=== PATIENT | male | born 1985 | race Caucasian/White ===

== ENCOUNTER 2021-04-08 14:48 | Inpatient (IN) | payer OTHER ==
[~2021-04-08] VITALS: Ht 180.3 cm; Wt 84.7 kg
--- NOTE | 2021-04-08 15:05 | NUR ---
PATIENT WALKED BACK FROM TRIAGE WITH CHIEF C/O RIGHT EYE SWELLING. PATIENT HAD EYE SURGERY 03/26/21 TO REMOVE BACTERIA THAT WAS IN SINUSES EATING AWAY BONE. RIGHT EYE STARTED SWELLING LAST NIGHT AND HAS GOTTEN WORSE. UPON ASSESSMENT RIGHT EYE IS SWOLLEN, CONNECTED TO MONITORS, VSS, AT BEDSIDE, CALL LIGHT WITHIN REACH.
--- NOTE | 2021-04-08 15:40 | NUR ---
COMMUNICATION [facility]ENTER COORDINATOR AT BEDSIDE.
[2021-04-08 16:04] LABS: BASOPHILS % (AUTO) 1 % (0-1); EOSINOPHILS % (AUTO) 4 % (1-7); LYMPHOCYTES % (AUTO) 23 % (22-44); MEAN CORPUSCULAR HEMOGLOBIN 31.3 pg (27.5-34.5); MEAN CORPUSCULAR HGB CONC 34.8 g/dL (33.2-36.2); MEAN PLATELET VOLUME 7.2 fL (7.4-10.4); MONOCYTES % (AUTO) 4 % (2-9); NEUTROPHILS % (AUTO) 68 % (42-75); PLATELET COUNT 250 x10^3/uL (130-400); RED BLOOD COUNT 5.11 x10^6/uL (4.38-5.82); RED CELL DISTRIBUTION WIDTH 13.2 % (9.4-14.8)
[2021-04-08 16:14] LABS: ALANINE AMINOTRANSFERASE 116 U/L (12-78); ALBUMIN 3.9 g/dL (3.4-5.0); ANION GAP 9 mmol/L (5-15); CALCIUM 8.9 mg/dL (8.5-10.1); CHLORIDE 106 mmol/L (98-107); CREATININE 0.98 mg/dL (0.7-1.3)
[2021-04-08 16:16] LABS: ALKALINE PHOSPHATASE 68 U/L (45-117); BILIRUBIN,TOTAL 0.5 mg/dL (0.2-1.0); TOTAL PROTEIN 7.3 g/dL (6.4-8.2)
--- NOTE | 2021-04-08 16:22 | NUR ---
PATIENT RESTING IN [facility] ON PHONE, AT BEDSIDE, CONNECTED TO MONITORS, VSS, NADN, CALL LIGHT WITHIN REACH, NO FURTHER NEEDS AT THIS TIME. WAITING FOR CT SCAN.
--- NOTE | 2021-04-08 16:30 | NUR ---
PATIENT TO CT SCAN.
[2021-04-08] MEDS ORDERED: OMNIPAQUE 350 MG/ML, 75ML BOTTLE ONE (16:41)
--- NOTE | 2021-04-08 17:39 | NUR ---
PATIENT BACK FROM CT SCAN, SITTING IN [facility] ON PHONE, AT BEDSIDE, CONNECTED TO MONITORS, VSS, CALL LIGHT WITHIN REACH. PATIENT UP FOR RECHECK.
--- NOTE | 2021-04-08 18:25 | NUR ---
ERMD AT BEDSIDE TO DISCUSS POC.
--- NOTE | 2021-04-08 18:45 | NUR ---
BEDSIDE REPORT FROM HAYDEN GALLARDO, PT CARE TRANSFERRED AT THIS TIME.
--- NOTE | 2021-04-08 19:28 | NUR ---
PT RESTING ON GURNEY, NAD, DENIES ADDITIONAL NEEDS, BED IN LOWEST, RAILS ENGAGED, CALL LIGHT ON LAP, MONITORING IN PLACE, VSS, WCTM.
[2021-04-08] MEDS ORDERED: ERTAPENEM IV (19:45)
[2021-04-08] MEDS ORDERED: DEXAMETHASONE 4 MG/ML, 1ML IVPush ONE (20:00)
[2021-04-08] MEDS ORDERED: ERTAPENEM 1 GM in SODIUM CHLORIDE 0.9% 50 ML IV ONE (20:00)
[2021-04-08] MEDS ORDERED: DEXAMETHASONE 4 MG/ML, 1ML ONE (20:11)
--- NOTE | 2021-04-08 20:20 | NUR ---
PT MEDICATED PER JAN. NAD, DENIES ADDITIONAL NEEDS, PT TO BE ADMITTED TO MED SURG. PT VSS, BED IN [facility], RAILS ENGAGED, SO AT BS, PROVIDER AT BS, MCKAYLA.
--- NOTE | 2021-04-08 20:48 | NUR ---
REPORT CALLED TO ARABELLA GALLARDO, PT NAD, DENIES ADDITIONAL QUESTIONS OR NEEDS AT THIS TIME. WCTM.
[2021-04-08] MEDS ORDERED: LORazepam 2 MG/ML, 1ML IVPush PRN (21:00)
[2021-04-08] MEDS ORDERED: TEMAZEPAM 15 MG CAPSULE PO PRN (21:00)
[2021-04-08] MEDS ORDERED: POTASSIUM CHLORIDE 20 MEQ TAB.ER.PRT PO ONE (21:00)
[2021-04-08] MEDS ORDERED: DEXAMETHASONE 4 MG/ML, 1ML IVPush SCH (21:00)
[2021-04-08] MEDS ORDERED: POLYETHYLENE GLYCOL 17 GM PACKET PO PRN (21:00)
[2021-04-08] MEDS ORDERED: BISACODYL 10 MG SUPP PR PRN (21:00)
[2021-04-08] MEDS ORDERED: ONDANSETRON 2MG/ML, 2ML IVPush PRN (21:00)
[2021-04-08] MEDS ORDERED: hydrALAzine 20 MG/ML, 1ML IVPush PRN (21:00)
[2021-04-08] MEDS ORDERED: DOCUSATE 100 MG CAPSULE PO PRN (21:00)
[2021-04-08 21:09] VITALS: BP 128/81
[2021-04-08] MEDS: FAMOTIDINE 20 MG TABLET PO SCH (21:40)
[2021-04-08] MEDS: MELATONIN 5 MG TABLET PO PRN (22:23)
[2021-04-08] MEDS: ACETAMINOPHEN 325 MG TABLET PO PRN (22:23)
[2021-04-09 01:31] VITALS: BP 114/68
[2021-04-09 05:34] LABS: BASOPHILS % (AUTO) 0 % (0-1); EOSINOPHILS % (AUTO) 0 % (1-7); LYMPHOCYTES % (AUTO) 10 % (22-44); MEAN CORPUSCULAR HEMOGLOBIN 30.9 pg (27.5-34.5); MEAN CORPUSCULAR HGB CONC 34.6 g/dL (33.2-36.2); MEAN PLATELET VOLUME 7.3 fL (7.4-10.4); MONOCYTES % (AUTO) 1 % (2-9); NEUTROPHILS % (AUTO) 89 % (42-75); PLATELET COUNT 258 x10^3/uL (130-400); RED BLOOD COUNT 5.22 x10^6/uL (4.38-5.82); RED CELL DISTRIBUTION WIDTH 13.1 % (9.4-14.8)
[2021-04-09 05:49] LABS: CALCIUM 9.7 mg/dL (8.5-10.1); CHLORIDE 107 mmol/L (98-107)
[2021-04-09 05:55] LABS: ALANINE AMINOTRANSFERASE 197 U/L (12-78); ALBUMIN 3.9 g/dL (3.4-5.0); ALKALINE PHOSPHATASE 70 U/L (45-117); ANION GAP 9 mmol/L (5-15); BILIRUBIN, DIRECT 0.1 mg/dL (0.1-0.2); BILIRUBIN,INDIRECT 0.4 mg/dL (0.0-2.0); BILIRUBIN,TOTAL 0.5 mg/dL (0.2-1.0); CREATININE 0.89 mg/dL (0.7-1.3); TOTAL PROTEIN 7.5 g/dL (6.4-8.2)
[2021-04-09 07:42] VITALS: BP 111/67
[2021-04-09] MEDS: DEXAMETHASONE 4 MG/ML, 1ML IVPush SCH ×3 (08:40→21:00)
[2021-04-09] MEDS: FAMOTIDINE 20 MG TABLET PO SCH ×2 (08:41→21:00)
[2021-04-09] MEDS: ENOXAPARIN 40 MG/0.4 ML SQ SCH (08:41)
[2021-04-09 14:46] VITALS: BP 118/64
[2021-04-09 19:22] VITALS: BP 119/70
[2021-04-09] MEDS: ERTAPENEM 1 GM in SODIUM CHLORIDE 0.9% 50 ML IV SCH (20:00)
[2021-04-09] MEDS: ACETAMINOPHEN 325 MG TABLET PO PRN (21:00)
[2021-04-09] MEDS: INSULIN LISPRO 100 UNITS/ML, PEN SQ-INSULIN SCH (21:00)
[2021-04-10 01:23] VITALS: BP 119/70
[2021-04-10] MEDS: PANTOPRAZOLE 40MG TABLET PO SCH (05:33)
[2021-04-10 06:17] LABS: MEAN CORPUSCULAR HEMOGLOBIN 30.9 pg (27.5-34.5); MEAN CORPUSCULAR HGB CONC 34.6 g/dL (33.2-36.2); MEAN PLATELET VOLUME 7.8 fL (7.4-10.4); PLATELET COUNT 278 x10^3/uL (130-400); RED BLOOD COUNT 4.95 x10^6/uL (4.38-5.82); RED CELL DISTRIBUTION WIDTH 13.1 % (9.4-14.8)
[2021-04-10 06:18] LABS: HCT (SEDRATE) 43.8 % (39.2-51.8)
[2021-04-10 06:23] LABS: CHLORIDE 104 mmol/L (98-107)
[2021-04-10 06:25] VITALS: BP 112/69
[2021-04-10 06:29] LABS: ANION GAP 10 mmol/L (5-15); C-REACTIVE PROTEIN, QUANT 0.36 mg/dL (0.02-0.49); CALCIUM 9.4 mg/dL (8.5-10.1); CREATININE 0.82 mg/dL (0.7-1.3)
[2021-04-10 06:46] LABS: <PLATELET ESTIMATE> ADEQUATE; <PLT MORPHOLOGY> NORMAL PLT MORPH; <RBC MORPHOLOGY> NORMAL; BANDS%(MANUAL) 3 % (0-7); LYMPHS% (MANUAL) 6 % (22-44); MONOS#(MANUAL) 0.33 x10^3/uL (0.3-2.7); MONOS% (MANUAL) 2 % (2-9); SEG#(MANUAL) 14.86 x10^3/uL (1.8-6.8); SEGS% (MANUAL) 89 % (42-75)
[2021-04-10] MEDS: INSULIN LISPRO 100 UNITS/ML, PEN SQ-INSULIN SCH ×4 (07:00→20:07)
[2021-04-10] MEDS: ENOXAPARIN 40 MG/0.4 ML SQ SCH (08:22)
[2021-04-10] MEDS: DEXAMETHASONE 4 MG/ML, 1ML IVPush SCH ×3 (08:29→20:49)
[2021-04-10] MEDS: FAMOTIDINE 20 MG TABLET PO SCH ×2 (08:29→20:48)
[2021-04-10] MEDS ORDERED: GADOTERATE 7.5 MMOL/15ML SYR ONE (09:19)
[2021-04-10 14:11] VITALS: BP 121/68
[2021-04-10] MEDS: ACETAMINOPHEN 325 MG TABLET PO PRN (16:45)
[2021-04-10] MEDS ORDERED: DAPTOMYCIN 480 MG in SODIUM CHLORIDE 0.9% 100 ML IVPB SCH (18:00)
[2021-04-10] MEDS: DAPTOMYCIN 500 MG in SODIUM CHLORIDE 0.9% 100 ML IVPB SCH (18:11)
[2021-04-10 18:30] VITALS: BP 116/72
[2021-04-10] MEDS: ERTAPENEM 1 GM in SODIUM CHLORIDE 0.9% 50 ML IV SCH (19:51)
[2021-04-11 00:19] VITALS: BP 116/69
[2021-04-11 04:23] LABS: MEAN CORPUSCULAR HEMOGLOBIN 30.5 pg (27.5-34.5); MEAN CORPUSCULAR HGB CONC 33.9 g/dL (33.2-36.2); MEAN PLATELET VOLUME 7.8 fL (7.4-10.4); PLATELET COUNT 253 x10^3/uL (130-400); RED BLOOD COUNT 4.68 x10^6/uL (4.38-5.82); RED CELL DISTRIBUTION WIDTH 13.1 % (9.4-14.8)
[2021-04-11 04:30] LABS: ALANINE AMINOTRANSFERASE 404 U/L (12-78); ALBUMIN 3.5 g/dL (3.4-5.0); ANION GAP 8 mmol/L (5-15); CALCIUM 8.9 mg/dL (8.5-10.1); CHLORIDE 105 mmol/L (98-107); CREATININE 0.76 mg/dL (0.7-1.3)
[2021-04-11 04:35] LABS: ALKALINE PHOSPHATASE 59 U/L (45-117); BILIRUBIN,TOTAL 0.4 mg/dL (0.2-1.0); CREATINE KINASE, TOTAL 19 U/L (39-308); TOTAL PROTEIN 6.9 g/dL (6.4-8.2)
[2021-04-11 04:46] LABS: BAND#(MANUAL) 0.19 x10^3/uL; BANDS%(MANUAL) 1 % (0-7); LYMPH#(MANUAL) 1.49 x10^3/uL (1-3.4); LYMPHS% (MANUAL) 8 % (22-44); MONOS#(MANUAL) 0.37 x10^3/uL (0.3-2.7); MONOS% (MANUAL) 2 % (2-9); SEG#(MANUAL) 16.55 x10^3/uL (1.8-6.8); SEGS% (MANUAL) 89 % (42-75)
[2021-04-11 04:47] LABS: <PLATELET ESTIMATE> ADEQUATE; <PLT MORPHOLOGY> NORMAL PLT MORPH; <RBC MORPHOLOGY> NORMAL
[2021-04-11] MEDS: PANTOPRAZOLE 40MG TABLET PO SCH (05:28)
[2021-04-11] MEDS: INSULIN LISPRO 100 UNITS/ML, PEN SQ-INSULIN SCH ×4 (07:00→21:00)
[2021-04-11 07:01] VITALS: BP 112/65
[2021-04-11] MEDS: ENOXAPARIN 40 MG/0.4 ML SQ SCH (09:00)
[2021-04-11] MEDS: DEXAMETHASONE 4 MG/ML, 1ML IVPush SCH ×3 (09:39→21:14)
[2021-04-11] MEDS: FAMOTIDINE 20 MG TABLET PO SCH ×2 (09:40→21:14)
[2021-04-11 12:45] VITALS: BP 113/67
[2021-04-11] MEDS: DAPTOMYCIN 500 MG in SODIUM CHLORIDE 0.9% 100 ML IVPB SCH (17:17)
[2021-04-11] MEDS: ACETAMINOPHEN 325 MG TABLET PO PRN (17:25)
[2021-04-11 18:33] VITALS: BP 107/67
[2021-04-11] MEDS: ERTAPENEM 1 GM in SODIUM CHLORIDE 0.9% 50 ML IV SCH (19:59)
[2021-04-12 00:15] VITALS: BP 123/71
[2021-04-12] MEDS: PANTOPRAZOLE 40MG TABLET PO SCH (05:29)
[2021-04-12] MEDS: INSULIN LISPRO 100 UNITS/ML, PEN SQ-INSULIN SCH ×4 (07:00→19:28)
[2021-04-12 07:14] VITALS: BP 112/63
[2021-04-12] MEDS: DEXAMETHASONE 4 MG/ML, 1ML IVPush SCH ×3 (08:34→21:22)
[2021-04-12] MEDS: ENOXAPARIN 40 MG/0.4 ML SQ SCH (08:35)
[2021-04-12] MEDS: FAMOTIDINE 20 MG TABLET PO SCH ×2 (08:35→21:22)
[2021-04-12 09:07] LABS: ALANINE AMINOTRANSFERASE 362 U/L (12-78); ALBUMIN 3.5 g/dL (3.4-5.0); ANION GAP 6 mmol/L (5-15); CALCIUM 8.9 mg/dL (8.5-10.1); CHLORIDE 106 mmol/L (98-107); CREATININE 0.76 mg/dL (0.7-1.3)
[2021-04-12 09:09] LABS: ALKALINE PHOSPHATASE 60 U/L (45-117); BILIRUBIN,TOTAL 0.5 mg/dL (0.2-1.0); TOTAL PROTEIN 6.9 g/dL (6.4-8.2)
[2021-04-12 13:25] VITALS: BP 120/64
[2021-04-12 16:15] LABS: ANA SCREEN NEGATIVE (Negative)
[2021-04-12] MEDS: DAPTOMYCIN 500 MG in SODIUM CHLORIDE 0.9% 100 ML IVPB SCH (17:00)
[2021-04-12 19:09] VITALS: BP 108/71
[2021-04-12] MEDS: ERTAPENEM 1 GM in SODIUM CHLORIDE 0.9% 50 ML IV SCH (19:54)
[2021-04-13 00:41] VITALS: BP 117/58
[2021-04-13] MEDS: PANTOPRAZOLE 40MG TABLET PO SCH (05:06)
[2021-04-13] MEDS: INSULIN LISPRO 100 UNITS/ML, PEN SQ-INSULIN SCH ×4 (07:00→20:16)
[2021-04-13] MEDS: ACETAMINOPHEN 325 MG TABLET PO PRN ×3 (07:24→20:25)
[2021-04-13 08:52] VITALS: BP 116/75
[2021-04-13] MEDS: DEXAMETHASONE 4 MG/ML, 1ML IVPush SCH ×2 (08:58→16:25)
[2021-04-13] MEDS: FAMOTIDINE 20 MG TABLET PO SCH ×2 (08:58→20:12)
[2021-04-13] MEDS: ENOXAPARIN 40 MG/0.4 ML SQ SCH (08:58)
[2021-04-13 10:19] LABS: ALANINE AMINOTRANSFERASE 327 U/L (12-78); ALBUMIN 3.6 g/dL (3.4-5.0); ANION GAP 11 mmol/L (5-15); CALCIUM 9.5 mg/dL (8.5-10.1); CHLORIDE 103 mmol/L (98-107); CREATININE 0.93 mg/dL (0.7-1.3)
[2021-04-13 10:20] LABS: INTERNATIONAL NORMALIZED RATIO 1.12 (0.93-1.1)
[2021-04-13 10:21] LABS: ALKALINE PHOSPHATASE 64 U/L (45-117); BILIRUBIN,TOTAL 0.6 mg/dL (0.2-1.0)
[2021-04-13 15:00] VITALS: BP 118/68
[2021-04-13] MEDS: DAPTOMYCIN 500 MG in SODIUM CHLORIDE 0.9% 100 ML IVPB SCH (17:46)
[2021-04-13 19:44] VITALS: BP 110/67
[2021-04-13] MEDS: ERTAPENEM 1 GM in SODIUM CHLORIDE 0.9% 50 ML IV SCH (20:12)
[2021-04-14] MEDS: DEXAMETHASONE 4 MG/ML, 1ML IVPush SCH ×4 (00:16→21:17)
[2021-04-14 00:20] VITALS: BP 113/73
[2021-04-14 04:21] LABS: BASOPHILS % (AUTO) 0 % (0-1); EOSINOPHILS % (AUTO) 0 % (1-7); LYMPHOCYTES % (AUTO) 7 % (22-44); MEAN CORPUSCULAR HEMOGLOBIN 30.5 pg (27.5-34.5); MEAN CORPUSCULAR HGB CONC 34.3 g/dL (33.2-36.2); MEAN PLATELET VOLUME 7.8 fL (7.4-10.4); MONOCYTES % (AUTO) 3 % (2-9); NEUTROPHILS % (AUTO) 90 % (42-75); PLATELET COUNT 253 x10^3/uL (130-400); RED CELL DISTRIBUTION WIDTH 13.3 % (9.4-14.8)
[2021-04-14 04:31] LABS: ANION GAP 7 mmol/L (5-15); CALCIUM 8.8 mg/dL (8.5-10.1); CHLORIDE 102 mmol/L (98-107); CREATININE 0.92 mg/dL (0.7-1.3)
[2021-04-14] MEDS: PANTOPRAZOLE 40MG TABLET PO SCH (05:28)
[2021-04-14] MEDS: INSULIN LISPRO 100 UNITS/ML, PEN SQ-INSULIN SCH ×4 (07:00→21:00)
[2021-04-14 07:15] VITALS: BP 112/68
[2021-04-14] MEDS: ENOXAPARIN 40 MG/0.4 ML SQ SCH (08:33)
[2021-04-14] MEDS: FAMOTIDINE 20 MG TABLET PO SCH ×2 (08:33→21:16)
[2021-04-14] MEDS: ACETAMINOPHEN 325 MG TABLET PO PRN ×2 (08:43→16:11)
[2021-04-14 09:54] LABS: ALANINE AMINOTRANSFERASE 304 U/L (12-78)
[2021-04-14 09:57] LABS: ALKALINE PHOSPHATASE 57 U/L (45-117)
[2021-04-14 12:21] VITALS: BP 114/66
[2021-04-14] MEDS ORDERED: EPINEPHRINE TOPICAL SOLN 1 MG/ML, 30ML ONE (13:14)
[2021-04-14] MEDS ORDERED: LIDOCAINE/PF 1%-EPI 1:200K, 30 ML ONE (13:14)
[2021-04-14] MEDS ORDERED: FLUORESCEIN SODIUM 500 MG/5 ML ONE (13:15)
[2021-04-14] MEDS ORDERED: NEOSPORIN OINT, 15GM ONE (13:15)
[2021-04-14] MEDS ORDERED: OXYMETAZOLINE NASAL SPRAY 0.05%,30ML ONE (13:15)
[2021-04-14 13:58] LABS: PLATELET (PFA) 255 x10^3/uL (130-400)
[2021-04-14] MEDS ORDERED: PROPOFOL 0 ML ONE (14:01)
[2021-04-14] MEDS ORDERED: FENTANYL PF 250 MCG/5ML ONE (14:02)
[2021-04-14] MEDS ORDERED: MIDAZOLAM 1 MG/ML, 2ML ONE (14:02)
[2021-04-14 14:46] LABS: INTERNATIONAL NORMALIZED RATIO 1.11 (0.93-1.1); PARTIAL THROMBOPLASTIN TIME 28 Seconds (25-31); PROTHROMBIN TIME 11.9 Seconds (9.6-11.5)
[2021-04-14] MEDS: DAPTOMYCIN 500 MG in SODIUM CHLORIDE 0.9% 100 ML IVPB SCH (17:17)
[2021-04-14] MEDS: ERTAPENEM 1 GM in SODIUM CHLORIDE 0.9% 50 ML IV SCH (19:46)
[2021-04-14] MEDS: OXYcodone IR 5MG TABLET PO PRN (21:16)
[2021-04-14] MEDS: MELATONIN 5 MG TABLET PO PRN (21:17)
[2021-04-14 21:31] VITALS: BP 110/63
[2021-04-15 03:28] VITALS: BP 95/61
[2021-04-15] MEDS: PANTOPRAZOLE 40MG TABLET PO SCH (05:58)
[2021-04-15] MEDS: OXYcodone IR 5MG TABLET PO PRN (06:00)
[2021-04-15] MEDS: INSULIN LISPRO 100 UNITS/ML, PEN SQ-INSULIN SCH ×4 (07:00→20:09)
[2021-04-15 08:07] VITALS: BP 117/68
[2021-04-15] MEDS: ENOXAPARIN 40 MG/0.4 ML SQ SCH (09:00)
[2021-04-15] MEDS: FAMOTIDINE 20 MG TABLET PO SCH ×2 (09:02→20:08)
[2021-04-15] MEDS: DEXAMETHASONE 4 MG/ML, 1ML IVPush SCH ×3 (09:04→20:08)
[2021-04-15 11:50] LABS: ALANINE AMINOTRANSFERASE 253 U/L (12-78)
[2021-04-15 14:34] VITALS: BP 116/63
[2021-04-15] MEDS: DAPTOMYCIN 500 MG in SODIUM CHLORIDE 0.9% 100 ML IVPB SCH (17:39)
[2021-04-15] MEDS: ACETAMINOPHEN 325 MG TABLET PO PRN (20:08)
[2021-04-15] MEDS: ERTAPENEM 1 GM in SODIUM CHLORIDE 0.9% 50 ML IV SCH (20:08)
[2021-04-15] MEDS: MELATONIN 5 MG TABLET PO PRN (20:09)
[2021-04-15 20:16] VITALS: BP 112/74
[2021-04-16 00:12] VITALS: BP 126/76
[2021-04-16] MEDS: PANTOPRAZOLE 40MG TABLET PO SCH (05:43)
[2021-04-16] MEDS: INSULIN LISPRO 100 UNITS/ML, PEN SQ-INSULIN SCH ×4 (07:00→19:33)
[2021-04-16 08:00] VITALS: BP 117/70
[2021-04-16] MEDS: ENOXAPARIN 40 MG/0.4 ML SQ SCH ×2 (09:00→09:41)
[2021-04-16] MEDS: FAMOTIDINE 20 MG TABLET PO SCH ×2 (09:41→19:30)
[2021-04-16] MEDS: DEXAMETHASONE 4 MG/ML, 1ML IVPush SCH ×3 (09:41→19:30)
[2021-04-16] MEDS: ACETAMINOPHEN 325 MG TABLET PO PRN ×3 (09:51→21:30)
[2021-04-16 14:13] VITALS: BP 120/73
[2021-04-16] MEDS: DAPTOMYCIN 500 MG in SODIUM CHLORIDE 0.9% 100 ML IVPB SCH (17:47)
[2021-04-16] MEDS: ERTAPENEM 1 GM in SODIUM CHLORIDE 0.9% 50 ML IV SCH (19:29)
[2021-04-16 20:07] VITALS: BP 117/53
[2021-04-17 01:18] VITALS: BP 121/71
[2021-04-17] MEDS: ACETAMINOPHEN 325 MG TABLET PO PRN ×3 (05:22→21:22)
[2021-04-17] MEDS: PANTOPRAZOLE 40MG TABLET PO SCH (05:22)
[2021-04-17] MEDS: INSULIN LISPRO 100 UNITS/ML, PEN SQ-INSULIN SCH ×4 (06:51→21:10)
[2021-04-17 07:42] VITALS: BP 120/77
[2021-04-17] MEDS: DEXAMETHASONE 4 MG/ML, 1ML IVPush SCH ×3 (08:29→21:09)
[2021-04-17] MEDS: FAMOTIDINE 20 MG TABLET PO SCH ×2 (08:29→21:09)
[2021-04-17] MEDS: ENOXAPARIN 40 MG/0.4 ML SQ SCH (08:46)
[2021-04-17 14:55] VITALS: BP 132/74
[2021-04-17] MEDS: DAPTOMYCIN 500 MG in SODIUM CHLORIDE 0.9% 100 ML IVPB SCH (17:24)
[2021-04-17 19:11] VITALS: BP 114/64
[2021-04-17] MEDS: ERTAPENEM 1 GM in SODIUM CHLORIDE 0.9% 50 ML IV SCH (19:49)
[2021-04-18 03:10] VITALS: BP 114/63
[2021-04-18] MEDS: PANTOPRAZOLE 40MG TABLET PO SCH (05:10)
[2021-04-18] MEDS: ACETAMINOPHEN 325 MG TABLET PO PRN ×3 (05:10→21:07)
[2021-04-18 05:18] LABS: MEAN CORPUSCULAR HEMOGLOBIN 30.7 pg (27.5-34.5); MEAN CORPUSCULAR HGB CONC 34.2 g/dL (33.2-36.2); MEAN PLATELET VOLUME 8.2 fL (7.4-10.4); PLATELET COUNT 216 x10^3/uL (130-400); RED CELL DISTRIBUTION WIDTH 13.1 % (9.4-14.8)
[2021-04-18 05:19] LABS: HCT (SEDRATE) 44.1 % (39.2-51.8)
[2021-04-18 05:30] LABS: ALANINE AMINOTRANSFERASE 336 U/L (12-78); ALBUMIN 2.9 g/dL (3.4-5.0); ANION GAP 8 mmol/L (5-15); C-REACTIVE PROTEIN, QUANT 0.13 mg/dL (0.02-0.49); CALCIUM 8.7 mg/dL (8.5-10.1); CHLORIDE 102 mmol/L (98-107); CREATININE 0.85 mg/dL (0.7-1.3)
[2021-04-18 05:32] LABS: ALKALINE PHOSPHATASE 52 U/L (45-117); BILIRUBIN,TOTAL 0.5 mg/dL (0.2-1.0); CREATINE KINASE, TOTAL 16 U/L (39-308)
[2021-04-18 06:15] LABS: <PLATELET ESTIMATE> ADEQUATE; <PLT MORPHOLOGY> NORMAL PLT MORPH; <RBC MORPHOLOGY> NORMAL; LYMPH#(MANUAL) 1.46 x10^3/uL (1-3.4); LYMPHS% (MANUAL) 9 % (22-44); METAMYELOCYTES# (MANUAL) 0.32 x10^3/uL (0-0); METAMYELOCYTES% (MANUAL) 2 % (0-1); MONOS% (MANUAL) 8 % (2-9); MYELOCYTES# (MANUAL) 0.16 x10^3/uL (0-0); MYELOCYTES% (MANUAL) 1 % (0-0); SEG#(MANUAL) 12.96 x10^3/uL (1.8-6.8); SEGS% (MANUAL) 80 % (42-75)
[2021-04-18] MEDS: INSULIN LISPRO 100 UNITS/ML, PEN SQ-INSULIN SCH ×4 (07:00→21:00)
[2021-04-18 07:22] VITALS: BP 118/67
[2021-04-18] MEDS: ENOXAPARIN 40 MG/0.4 ML SQ SCH (09:00)
[2021-04-18] MEDS: DEXAMETHASONE 4 MG/ML, 1ML IVPush SCH ×3 (09:04→21:07)
[2021-04-18] MEDS: FAMOTIDINE 20 MG TABLET PO SCH ×2 (09:04→21:07)
[2021-04-18 14:02] VITALS: BP 120/54
[2021-04-18] MEDS: DAPTOMYCIN 500 MG in SODIUM CHLORIDE 0.9% 100 ML IVPB SCH (17:14)
[2021-04-18 19:25] VITALS: BP 127/54
[2021-04-18] MEDS: ERTAPENEM 1 GM in SODIUM CHLORIDE 0.9% 50 ML IV SCH (20:03)
[2021-04-19 01:05] VITALS: BP 101/59
[2021-04-19] MEDS: PANTOPRAZOLE 40MG TABLET PO SCH (06:08)
[2021-04-19] MEDS: INSULIN LISPRO 100 UNITS/ML, PEN SQ-INSULIN SCH ×4 (07:00→20:58)
[2021-04-19] MEDS: FAMOTIDINE 20 MG TABLET PO SCH ×2 (08:04→20:58)
[2021-04-19] MEDS: ACETAMINOPHEN 325 MG TABLET PO PRN ×3 (08:04→19:55)
[2021-04-19] MEDS: ENOXAPARIN 40 MG/0.4 ML SQ SCH (08:05)
[2021-04-19] MEDS: DEXAMETHASONE 4 MG/ML, 1ML IVPush SCH ×3 (08:05→20:57)
[2021-04-19 08:50] VITALS: BP 122/77
[2021-04-19] MEDS ORDERED: METOPROLOL SUCCINATE 50 MG TAB.ER.24H PO SCH (14:30)
[2021-04-19 14:44] VITALS: BP 116/64
[2021-04-19] MEDS: OXYcodone IR 5MG TABLET PO PRN (16:25)
[2021-04-19] MEDS: DAPTOMYCIN 500 MG in SODIUM CHLORIDE 0.9% 100 ML IVPB SCH (17:58)
[2021-04-19 19:47] VITALS: BP 96/65
[2021-04-19] MEDS: ERTAPENEM 1 GM in SODIUM CHLORIDE 0.9% 50 ML IV SCH (19:55)
[2021-04-20] MEDS: ACETAMINOPHEN 325 MG TABLET PO PRN ×2 (00:52→05:23)
[2021-04-20 00:55] VITALS: BP 122/73
[2021-04-20] MEDS: PANTOPRAZOLE 40MG TABLET PO SCH (05:21)
[2021-04-20 07:26] VITALS: BP 108/65
[2021-04-20] MEDS: INSULIN LISPRO 100 UNITS/ML, PEN SQ-INSULIN SCH ×4 (07:40→19:43)
[2021-04-20] MEDS: OXYcodone IR 5MG TABLET PO PRN (08:40)
[2021-04-20] MEDS: ENOXAPARIN 40 MG/0.4 ML SQ SCH (08:40)
[2021-04-20] MEDS: DEXAMETHASONE 4 MG/ML, 1ML IVPush SCH ×3 (08:40→21:18)
[2021-04-20] MEDS: FAMOTIDINE 20 MG TABLET PO SCH ×2 (08:40→21:18)
[2021-04-20] MEDS: HYDROcodone/APAP 5/325 TABLET PO PRN ×3 (12:01→23:45)
[2021-04-20 13:09] VITALS: BP 120/69
[2021-04-20] MEDS: FENTANYL 50 MCG PATCH TD SCH (13:47)
[2021-04-20] MEDS: DAPTOMYCIN 500 MG in SODIUM CHLORIDE 0.9% 100 ML IVPB SCH (17:53)
[2021-04-20] MEDS: ERTAPENEM 1 GM in SODIUM CHLORIDE 0.9% 50 ML IV SCH (19:35)
[2021-04-20 19:38] VITALS: BP 123/69
[2021-04-21 00:41] VITALS: BP 116/72
[2021-04-21] MEDS: PANTOPRAZOLE 40MG TABLET PO SCH (05:33)
[2021-04-21] MEDS: HYDROcodone/APAP 5/325 TABLET PO PRN ×3 (06:12→18:47)
[2021-04-21] MEDS: INSULIN LISPRO 100 UNITS/ML, PEN SQ-INSULIN SCH ×4 (07:50→19:32)
[2021-04-21 08:06] VITALS: BP 112/65
[2021-04-21] MEDS: ENOXAPARIN 40 MG/0.4 ML SQ SCH (08:40)
[2021-04-21] MEDS: FAMOTIDINE 20 MG TABLET PO SCH ×2 (08:44→21:12)
[2021-04-21] MEDS: DEXAMETHASONE 4 MG/ML, 1ML IVPush SCH ×3 (08:46→21:12)
[2021-04-21 13:08] VITALS: BP 128/71
[2021-04-21] MEDS: DAPTOMYCIN 500 MG in SODIUM CHLORIDE 0.9% 100 ML IVPB SCH (17:43)
[2021-04-21 19:36] VITALS: BP 109/60
[2021-04-21] MEDS: ERTAPENEM 1 GM in SODIUM CHLORIDE 0.9% 50 ML IV SCH (19:38)
[2021-04-22 00:36] VITALS: BP 101/59
[2021-04-22] MEDS: HYDROcodone/APAP 5/325 TABLET PO PRN ×5 (00:42→20:47)
[2021-04-22] MEDS: PANTOPRAZOLE 40MG TABLET PO SCH (05:09)
[2021-04-22 06:02] LABS: CREATININE 0.85 mg/dL (0.7-1.3)
[2021-04-22] MEDS: INSULIN LISPRO 100 UNITS/ML, PEN SQ-INSULIN SCH ×4 (07:02→20:48)
[2021-04-22 07:05] VITALS: BP 115/64
[2021-04-22] MEDS: DEXAMETHASONE 4 MG/ML, 1ML IVPush SCH ×3 (08:06→20:39)
[2021-04-22] MEDS: FAMOTIDINE 20 MG TABLET PO SCH ×2 (08:06→20:39)
[2021-04-22] MEDS: ENOXAPARIN 40 MG/0.4 ML SQ SCH (08:32)
[2021-04-22 14:06] VITALS: BP 129/78
[2021-04-22] MEDS: DAPTOMYCIN 500 MG in SODIUM CHLORIDE 0.9% 100 ML IVPB SCH (18:07)
[2021-04-22] MEDS: ERTAPENEM 1 GM in SODIUM CHLORIDE 0.9% 50 ML IV SCH (20:39)
[2021-04-22 20:56] VITALS: BP 130/72
[2021-04-23] MEDS: HYDROcodone/APAP 5/325 TABLET PO PRN ×2 (01:02→05:59)
[2021-04-23 02:29] VITALS: BP 127/78
[2021-04-23] MEDS: PANTOPRAZOLE 40MG TABLET PO SCH (05:59)
[2021-04-23] MEDS: INSULIN LISPRO 100 UNITS/ML, PEN SQ-INSULIN SCH ×4 (07:00→19:57)
[2021-04-23] MEDS: ENOXAPARIN 40 MG/0.4 ML SQ SCH (07:29)
[2021-04-23] MEDS: FAMOTIDINE 20 MG TABLET PO SCH ×2 (07:29→19:57)
[2021-04-23] MEDS: DEXAMETHASONE 4 MG/ML, 1ML IVPush SCH ×3 (07:29→19:57)
[2021-04-23 07:46] VITALS: BP 136/81
[2021-04-23] MEDS: FENTANYL 50 MCG PATCH TD SCH (09:14)
[2021-04-23 14:12] VITALS: BP 118/68
[2021-04-23] MEDS: DAPTOMYCIN 500 MG in SODIUM CHLORIDE 0.9% 100 ML IVPB SCH (17:32)
[2021-04-23 19:31] VITALS: BP 146/69
[2021-04-23] MEDS: ERTAPENEM 1 GM in SODIUM CHLORIDE 0.9% 50 ML IV SCH (19:56)
[2021-04-24 00:35] VITALS: BP 117/68
[2021-04-24] MEDS: PANTOPRAZOLE 40MG TABLET PO SCH (05:37)
[2021-04-24] MEDS: INSULIN LISPRO 100 UNITS/ML, PEN SQ-INSULIN SCH ×4 (07:00→21:00)
[2021-04-24 07:47] VITALS: BP 114/62
[2021-04-24] MEDS: ENOXAPARIN 40 MG/0.4 ML SQ SCH (09:00)
[2021-04-24] MEDS: FAMOTIDINE 20 MG TABLET PO SCH ×2 (09:20→21:11)
[2021-04-24] MEDS: DEXAMETHASONE 4 MG/ML, 1ML IVPush SCH ×3 (09:20→21:12)
[2021-04-24 13:44] VITALS: BP 122/68
[2021-04-24] MEDS: DAPTOMYCIN 500 MG in SODIUM CHLORIDE 0.9% 100 ML IVPB SCH (17:34)
[2021-04-24] MEDS: ERTAPENEM 1 GM in SODIUM CHLORIDE 0.9% 50 ML IV SCH (20:12)
[2021-04-24 20:26] VITALS: BP 121/68
[2021-04-25 01:22] VITALS: BP 129/67
[2021-04-25 05:44] LABS: HCT (SEDRATE) 44.2 % (39.2-51.8)
[2021-04-25] MEDS: PANTOPRAZOLE 40MG TABLET PO SCH (05:44)
[2021-04-25 05:49] LABS: ALBUMIN 2.7 g/dL (3.4-5.0); ANION GAP 7 mmol/L (5-15); CALCIUM 8.1 mg/dL (8.5-10.1); CHLORIDE 96 mmol/L (98-107)
[2021-04-25 05:53] LABS: BASOPHILS % (AUTO) 0 % (0-1); EOSINOPHILS % (AUTO) 0 % (1-7); LYMPHOCYTES % (AUTO) 5 % (22-44); MEAN CORPUSCULAR HEMOGLOBIN 31.3 pg (27.5-34.5); MEAN CORPUSCULAR HGB CONC 34.2 g/dL (33.2-36.2); MEAN PLATELET VOLUME 8.2 fL (7.4-10.4); MONOCYTES % (AUTO) 4 % (2-9); NEUTROPHILS % (AUTO) 91 % (42-75); PLATELET COUNT 152 x10^3/uL (130-400); RED BLOOD COUNT 4.78 x10^6/uL (4.38-5.82); RED CELL DISTRIBUTION WIDTH 13.6 % (9.4-14.8)
[2021-04-25 05:57] LABS: ALANINE AMINOTRANSFERASE 1097 U/L (12-78); ALKALINE PHOSPHATASE 60 U/L (45-117); BILIRUBIN,TOTAL 0.7 mg/dL (0.2-1.0); C-REACTIVE PROTEIN, QUANT 0.09 mg/dL (0.02-0.49); CREATINE KINASE, TOTAL 26 U/L (39-308); CREATININE 0.74 mg/dL (0.7-1.3); TOTAL PROTEIN 5.7 g/dL (6.4-8.2)
[2021-04-25 06:58] VITALS: BP 120/69
[2021-04-25] MEDS: INSULIN LISPRO 100 UNITS/ML, PEN SQ-INSULIN SCH ×4 (07:00→20:50)
[2021-04-25] MEDS: ENOXAPARIN 40 MG/0.4 ML SQ SCH (09:00)
[2021-04-25] MEDS: DEXAMETHASONE 4 MG/ML, 1ML IVPush SCH ×3 (09:08→20:48)
[2021-04-25] MEDS: FAMOTIDINE 20 MG TABLET PO SCH ×2 (09:08→20:48)
[2021-04-25 12:58] VITALS: BP 121/74
[2021-04-25] MEDS: DAPTOMYCIN 500 MG in SODIUM CHLORIDE 0.9% 100 ML IVPB SCH (17:05)
[2021-04-25 18:30] VITALS: BP 129/70
[2021-04-25] MEDS: ERTAPENEM 1 GM in SODIUM CHLORIDE 0.9% 50 ML IV SCH (19:58)
[2021-04-25 20:19] LABS: INTERNATIONAL NORMALIZED RATIO 1.05 (0.93-1.1); PROTHROMBIN TIME 11.2 Seconds (9.6-11.5)
[2021-04-26 00:10] VITALS: BP 109/61
[2021-04-26] MEDS: PANTOPRAZOLE 40MG TABLET PO SCH (05:49)
[2021-04-26 06:58] VITALS: BP 115/68
[2021-04-26] MEDS: ENOXAPARIN 40 MG/0.4 ML SQ SCH (07:00)
[2021-04-26] MEDS: INSULIN LISPRO 100 UNITS/ML, PEN SQ-INSULIN SCH ×4 (07:00→21:00)
[2021-04-26] MEDS: FAMOTIDINE 20 MG TABLET PO SCH ×2 (08:15→21:07)
[2021-04-26] MEDS: FENTANYL 50 MCG PATCH TD SCH (08:16)
[2021-04-26] MEDS: DEXAMETHASONE 4 MG/ML, 1ML IVPush SCH ×3 (08:19→21:07)
[2021-04-26] MEDS ORDERED: EPINEPHRINE 1 MG/ML, 1ML ONE (08:24)
[2021-04-26] MEDS ORDERED: OXYMETAZOLINE NASAL SPRAY 0.05%,30ML ONE (08:24)
[2021-04-26] MEDS ORDERED: EPINEPHRINE TOPICAL SOLN 1 MG/ML, 30ML ONE (08:24)
[2021-04-26] MEDS ORDERED: FLUORESCEIN SODIUM 500 MG/5 ML ONE (08:24)
[2021-04-26] MEDS ORDERED: BACITRACIN OINT 500U/GM, 15 GM ONE (08:24)
[2021-04-26] MEDS ORDERED: LIDOCAINE/PF 1%, 30ML ONE (08:24)
[2021-04-26] MEDS ORDERED: MIDAZOLAM 1 MG/ML, 2ML ONE (08:32)
[2021-04-26] MEDS ORDERED: FENTANYL PF 250 MCG/5ML ONE ×3 (08:33→10:51)
[2021-04-26] MEDS ORDERED: ROCURONIUM 10MG/ML,5ML ONE (08:49)
[2021-04-26] MEDS ORDERED: PROPOFOL 10 MG/ML, 20ML ONE (08:49)
[2021-04-26] MEDS ORDERED: DESMOPRESSIN 24 MCG in SODIUM CHLORIDE 0.9% 50 ML IVPB ONE (09:00)
[2021-04-26] MEDS ORDERED: LACTATED RINGERS 1,000 ML IV SCH (09:00)
[2021-04-26] MEDS ORDERED: CHLORHEXIDINE 15 ML UDC PO ONE (09:00)
[2021-04-26] MEDS ORDERED: GLYCOPYRROLATE 0.2MG/1ML, 5ML ONE (09:07)
[2021-04-26] MEDS ORDERED: DEXAMETHASONE 4 MG/ML, 1ML ONE (09:07)
[2021-04-26] MEDS ORDERED: ONDANSETRON 2MG/ML, 2ML ONE (09:07)
[2021-04-26] MEDS ORDERED: NEOSTIGMINE 1 MG/ML, 10ML ONE (09:07)
[2021-04-26] MEDS ORDERED: FENTANYL PF 100 MCG/2ML ONE ×2 (10:06→13:57)
[2021-04-26] MEDS ORDERED: EPHEDRINE 50 MG/ML, 1ML IVPush PRN (13:00)
[2021-04-26] MEDS ORDERED: ALBUTEROL SULFATE 2.5 MG/3 ML NPPB PRN (13:00)
[2021-04-26] MEDS ORDERED: PROMETHAZINE 12.5 MG SUPP PR PRN (13:00)
[2021-04-26] MEDS ORDERED: PROMETHAZINE 25 MG/ML, 1ML IVPush PRN (13:00)
[2021-04-26] MEDS ORDERED: FENTANYL PF 100 MCG/2ML IV PRN (13:00)
[2021-04-26] MEDS ORDERED: DIPHENHYDRAMINE 50 MG/ML, 1ML IVPush PRN ×2 (13:00)
[2021-04-26] MEDS ORDERED: MIDAZOLAM 1 MG/ML, 2ML IV PRN (13:00)
[2021-04-26] MEDS ORDERED: OXYcodone 5 MG/5 ML ORAL.SOL UDC PO PRN (13:00)
[2021-04-26] MEDS ORDERED: hydrALAzine 20 MG/ML, 1ML IV PRN (13:00)
[2021-04-26] MEDS ORDERED: ONDANSETRON 2MG/ML, 2ML IVPush PRN (13:00)
[2021-04-26] MEDS ORDERED: HYDROmorphone 1 MG/ML, 1ML INJ IVPush PRN (13:00)
[2021-04-26] MEDS ORDERED: MEPERIDINE/PF 25MG/0.5ML IVPush PRN (13:00)
[2021-04-26] MEDS ORDERED: LABETALOL 5MG/ML, 20ML IV PRN (13:00)
[2021-04-26] MEDS ORDERED: DIAZEPAM 5 MG/ML, 2ML IVPush PRN (13:00)
[2021-04-26] MEDS ORDERED: ACETAMINOPHEN 325 MG TABLET PO PRN (13:00)
[2021-04-26 13:02] VITALS: BP 152/74
[2021-04-26] MEDS ORDERED: OXYcodone 5 MG/5 ML ORAL.SOL UDC ONE (13:57)
[2021-04-26] MEDS ORDERED: ACETAMINOPHEN 650 MG/20.3 ML UDC ONE (13:57)
[2021-04-26] MEDS: SODIUM CHLORIDE NASAL SPRAY 45ML BOTTLE NAS SCH ×3 (14:00→22:00)
[2021-04-26] MEDS: DAPTOMYCIN 500 MG in SODIUM CHLORIDE 0.9% 100 ML IVPB SCH (17:02)
[2021-04-26 20:03] VITALS: BP 118/78
[2021-04-26] MEDS: HYDROcodone/APAP 5/325 TABLET PO PRN (20:59)
[2021-04-26] MEDS: ERTAPENEM 1 GM in SODIUM CHLORIDE 0.9% 50 ML IV SCH (21:07)
[2021-04-27 00:53] VITALS: BP 115/65
[2021-04-27] MEDS: HYDROcodone/APAP 5/325 TABLET PO PRN ×3 (01:24→13:27)
[2021-04-27] MEDS: PANTOPRAZOLE 40MG TABLET PO SCH (05:40)
[2021-04-27] MEDS: SODIUM CHLORIDE NASAL SPRAY 45ML BOTTLE NAS SCH ×5 (05:41→21:39)
[2021-04-27 07:24] VITALS: BP 118/71
[2021-04-27] MEDS: DEXAMETHASONE 4 MG/ML, 1ML IVPush SCH ×3 (08:02→19:58)
[2021-04-27] MEDS: FAMOTIDINE 20 MG TABLET PO SCH ×2 (08:02→19:58)
[2021-04-27] MEDS: INSULIN LISPRO 100 UNITS/ML, PEN SQ-INSULIN SCH ×4 (08:03→19:41)
[2021-04-27] MEDS: ENOXAPARIN 40 MG/0.4 ML SQ SCH (08:04)
[2021-04-27 13:55] VITALS: BP 115/70
[2021-04-27] MEDS: DAPTOMYCIN 500 MG in SODIUM CHLORIDE 0.9% 100 ML IVPB SCH (17:53)
[2021-04-27 19:53] VITALS: BP 133/72
[2021-04-27] MEDS: ERTAPENEM 1 GM in SODIUM CHLORIDE 0.9% 50 ML IV SCH (19:57)
[2021-04-28 01:29] VITALS: BP 107/63
[2021-04-28] MEDS: PANTOPRAZOLE 40MG TABLET PO SCH (05:58)
[2021-04-28] MEDS: SODIUM CHLORIDE NASAL SPRAY 45ML BOTTLE NAS SCH ×5 (05:58→21:54)
[2021-04-28 07:10] VITALS: BP 110/71
[2021-04-28] MEDS: INSULIN LISPRO 100 UNITS/ML, PEN SQ-INSULIN SCH ×4 (07:17→20:30)
[2021-04-28] MEDS: FAMOTIDINE 20 MG TABLET PO SCH ×2 (08:53→20:31)
[2021-04-28] MEDS: DEXAMETHASONE 4 MG/ML, 1ML IVPush SCH ×3 (08:54→20:31)
[2021-04-28] MEDS: ENOXAPARIN 40 MG/0.4 ML SQ SCH (08:59)
[2021-04-28 13:05] VITALS: BP 133/79
[2021-04-28] MEDS ORDERED: DEXA4TAB66 PO (15:53)
[2021-04-28] MEDS ORDERED: DAPT500V6 IV (15:53)
[2021-04-28] MEDS ORDERED: HYDR-2214 PO (15:53)
[2021-04-28] MEDS: DAPTOMYCIN 500 MG in SODIUM CHLORIDE 0.9% 100 ML IVPB SCH (17:39)
[2021-04-28 20:15] VITALS: BP 113/67
[2021-04-28] MEDS: ERTAPENEM 1 GM in SODIUM CHLORIDE 0.9% 50 ML IV SCH (20:32)
[2021-04-29 01:05] VITALS: BP 136/81
[2021-04-29] MEDS: PANTOPRAZOLE 40MG TABLET PO SCH (05:21)
[2021-04-29] MEDS: SODIUM CHLORIDE NASAL SPRAY 45ML BOTTLE NAS SCH ×2 (05:21→10:54)
[2021-04-29] MEDS: INSULIN LISPRO 100 UNITS/ML, PEN SQ-INSULIN SCH ×2 (07:00→10:55)
[2021-04-29 07:29] VITALS: BP 123/75
[2021-04-29] MEDS: FAMOTIDINE 20 MG TABLET PO SCH (08:11)
[2021-04-29] MEDS: FENTANYL 50 MCG PATCH TD SCH (08:12)
[2021-04-29] MEDS: ENOXAPARIN 40 MG/0.4 ML SQ SCH (08:12)
[2021-04-29] MEDS: DEXAMETHASONE 4 MG/ML, 1ML IVPush SCH (08:12)
== END 2021-04-29 13:57 | disposition home or self-care (01) | DRG 144 ==
LOC: ED 20:34 → EDIP 20:48 → 3N 20:57
PROVIDERS: ADMIT Internal Medicine; ATTEND Hospitalist
PROC: 09BL0ZZ Excision of Nasal Turbinate, Open Approach (ICD-10-PCS; 2021-04-26)
PROC: 09B Ear, Nose, Sinus, Excision (ICD-10-PCS; 2021-04-26)
PROC: 09B Ear, Nose, Sinus, Excision (ICD-10-PCS; 2021-04-26)
PROC: 09U Ear, Nose, Sinus, Supplement (ICD-10-PCS; 2021-04-26)
PROC: 00J Central Nervous System and Cranial Nerves, Inspection (ICD-10-PCS; 2021-04-26)
PROC: 09BU0ZZ Excision of Right Ethmoid Sinus, Open Approach (ICD-10-PCS; principal; 2021-04-26 10:30)
DX: J32.2 Chronic ethmoidal sinusitis (principal); H05.019 Cellulitis of unspecified orbit; L03.213 Periorbital cellulitis; M86.60 Other chronic osteomyelitis, unspecified site; D68.0 Von Willebrand disease; J32.0 Chronic maxillary sinusitis; E87.6 Hypokalemia; F12.90 Cannabis use, unspecified, uncomplicated; I10 Essential (primary) hypertension; J34.1 Cyst and mucocele of nose and nasal sinus; K76.0 Fatty (change of) liver, not elsewhere classified; Z20.822 Contact with and (suspected) exposure to COVID-19; J32.3 Chronic sphenoidal sinusitis; J32.1 Chronic frontal sinusitis; K21.9 Gastro-esophageal reflux disease without esophagitis; F41.9 Anxiety disorder, unspecified; R60.9 Edema, unspecified; Z79.52 Long term (current) use of systemic steroids; Z85.47 Personal history of malignant neoplasm of testis; Z92.21 Personal history of antineoplastic chemotherapy; Z88.1 Allergy status to other antibiotic agents; Z88.2 Allergy status to sulfonamides
CPT/HCPCS: 36415; 96374; 99285; J3490; 70481; 70486; 70543; 70553; 76705; 80048; 80053; 80074; 80076; 82550; 82565; 82728; 82784; 82787; 82962; 83516; 83735; 84075; 84100; 84450; 84460; 85014; 85025; 85049; 85240; 85245; 85246; 85247; 85576; 85610; 85651; 85730; 86038; 86140; 86609; 86850; 86900; 87070; 87075; 87205; 87635; 88304; 88311; G0378; J0171; J0878; J1100; J1335; J1650; J2250; J2405; J2704; J2710; J3010; Q9967; A9575; J1815; J7120; J7402